=== PATIENT | male | born 1985 | race Caucasian/White ===

== ENCOUNTER 2017-08-29 13:39 | Emergency (ER) | payer OTHER ==
[~2017-08-29] VITALS: Ht 170.2 cm; Wt 86.2 kg
[2017-08-29] MEDS ORDERED: ANTIVERT25 MG PO (13:51)
[2017-08-29] MEDS ORDERED: PROTONIX 20 MG20 M1 PO (13:51)
[2017-08-29 14:40] LABS: ABSOLUTE BASOPHILS 0.1 thou/uL (0.0-0.2); ABSOLUTE LYMPHOCYTES 2.7 thou/uL (0.8-5.3); ABSOLUTE MONOCYTES 0.5 thou/uL (0.0-1.2); ABSOLUTE NEUTROPHILS 5.3 thou/uL (1.6-8.1); EOSINOPHILS 0.5 %; HEMATOCRIT 42.8 % (42.0-52.0); HEMOGLOBIN 14.9 gm/dL (14.0-18.0); LYMPHOCYTES 31.3 %; MCH 30.5 pg (26.0-34.0); MCHC 34.8 g/dL (28.0-37.0); MCV 87.5 fL (80.0-100.0); MONOCYTES 5.5 %; MPV 6.9 fl. (7.2-11.1); NUCLEATED RBCS 0 /100WBC; PLATELET COUNT* 399 thou/uL (150-400); POLYS 61.7 %; RBC 4.89 mil/uL (4.50-6.00); RDW-CV 12.2 % (10.5-14.5); WBC 8.5 thou/uL (4.0-11.0)
[2017-08-29 14:56] LABS: CALCIUM 9.5 mg/dL (8.5-10.1); CREATININE 0.9 mg/dL (0.6-1.3); POTASSIUM 3.9 mmol/L (3.5-5.1)
[2017-08-29 15:01] LABS: TOTAL BILIRUBIN 0.3 mg/dL (<0.1-1.0); TOTAL PROTEIN 7.6 g/dL (6.4-8.2)
[2017-08-29 15:07] LABS: ALBUMIN 4.4 g/dL (3.4-5.0)
[2017-08-29 15:42] LABS: ESR (SEDRATE) 1 mm/hr (0-15)
[2017-08-29 16:07] VITALS: BP 129/92
--- NOTE | 2017-08-29 18:01 | EKG ---
[place] [address] ELECTROCARDIOGRAM REPORT Name: ABDELRAHMAN SAUCEDO JR Room: [facility]#: [id number] Admission: 08/29/17 Attend Phys: Discharge: 08/29/17 Date of : 81 Report #: [id number] THIS REPORT FOR: //name// [facility] ED Test Date: 2017-08-29 Test Time: 14:36:20 Pat Name: ABDELRAHMAN SAUCEDO Department: Room: Gender: M Fitness Director: Emmie PIERSON : [id number] Requested By: Marce Juarez Order Number: [id number] MD: Wyatt Johnson Measurements Intervals [place] Rate: 65 P: 17 MA: 140 QRS: 12 QRSD: 90 T: 24 QT: 373 QTc: 388 Interpretive Statements Sinus rhythm Baseline wander in lead(s) I No previous ECG available for comparison Electronically Signed On 08-29-2017 18:01:41 CDT by Wyatt Johnson [email or web address] <ELECTRONICALLY SIGNED> By: Wyatt Johnson MD, [facility] 08/29/17 1801 1436 1436 Wyatt Johnson MD, FACC /EPI
== END 2017-08-29 16:08 | disposition home or self-care (01) ==
LOC: M.ERS 13:39
PROVIDERS: Nurse Practitioner Family
DX: F41.0 Panic disorder [episodic paroxysmal anxiety] (principal)